=== PATIENT | female | born 1995 | race Caucasian/White ===

== ENCOUNTER → 2017-02-22 19:40 | Observation (INO) ==
--- NOTE | 2017-02-22 17:48 | OB/GYN Progress Note ---
Date of Encounter: 02/22/17 Time of Encounter: 17:44 - Assessment and Plan (1) Vaginal discharge during in second trimester Current Visit: Yes Status: Acute Heart tones WNL SSE - cervix visually closed with large amount of proctor/white discharge with fishy odor Fern - negative Nitrazine - negative Vaginosis panel - negative Urinalysis - contaminated Discharge home with labor precautions. Follow up in office with primary TECHNICAL COMMUNICATION TEACHER as scheduled and PRN. (2) 22 weeks gestation of Current Visit: Yes Status: Acute Subjective - Subjective Principal diagnosis: Vaginal discharge during Interval history: Ms Souza is a at 22 weeks who is a patient of Dr Higgins in [place] that arrives to triage with c/o leaking of fluid that began today around 1300 at work. She states she felt a large amount of pressure when bending over and then a gush. She states she has been having period like cramps since Monday. She discussed these complaints with her primary OB over the phone who suggested she take a warm bath on Monday evening. She states positive movement, but states that it has never been regular movement. She denies vaginal bleeding, headaches, vision changes, and epigastric pain. Antepartum ROS: new complaints, loss of fluid, movement normal Objective - Exam FHR: auscultation normal FHR comments: FHTs 150 with moderate variability - appropriate for gestational age. Auscultation: bilateral: normal Abdomen: Present: normal appearance, soft, gravid. Absent: distention, tenderness Uterus: Present: normal. Absent: firm, tenderness Comments: SSE - cervix visually closed Large amount of proctor/white discharge with fish odor.
[2017-02-22 18:06] LABS: Bilirubin,Urine Negative (Negative); Blood,Urine Negative (Negative); Clarity,Urine Cloudy (Clear); Color,Urine Yellow (Yellow); Glucose,Urine (UA) Normal (Normal); Ketones,Urine Negative (Negative); Leukocyte Esterase,Urine Negative (Negative); Nitrite,Urine Negative (Negative); Protein,Urine Negative (Neg-Trace); Specific Gravity,Urine 1.022 (1.010-1.025); Urobilinogen,Urine Normal (Normal)
[2017-02-22 18:09] LABS: Bacteria,Urine None Seen per hpf (None-Few); Hyaline Casts,Urine None Seen per lpf (None-Few); RBC,Urine 0-3 per hpf (0-3); Squamous Epithelial Cell,Urine Many per lpf (None-Few)
[2017-02-22 19:26] LABS: Trichomonas DNA Not Detected (Not Detect)
[2017-02-22 19:27] LABS: Candida DNA Not Detected (Not Detect); Gardnerella DNA Not Detected (Not Detect)
[2017-02-22 19:37] LABS: Amphetamine Screen,Urine Negative ng/mL (Cutoff=1000); Barbiturate Screen,Urine Negative ng/mL (Cutoff=200); Benzodiazepines Screen,Urine Negative ng/mL (Cutoff=200); Cannabinoid Screen,Urine Negative ng/mL (Cutoff = 50); Cocaine Screen,Urine Negative ng/mL (Cutoff= 300); Opiate Screen,Urine Negative ng/mL (Cutoff=300); Phencyclidine Screen,Urine Negative ng/mL (Cutoff=25)
== END | disposition home or self-care (01) ==
LOC: 1NENULAB
PROVIDERS: ADMIT Obstetrics & Gynecology; ATTEND Obstetrics & Gynecology

== ENCOUNTER → 2017-05-04 10:12 | Observation (INO) ==
[2017-05-04 09:11] LABS: Bilirubin,Urine Negative (Negative); Blood,Urine Negative (Negative); Clarity,Urine Clear (Clear); Color,Urine Yellow (Yellow); Glucose,Urine (UA) Normal (Normal); Ketones,Urine Negative (Negative); Leukocyte Esterase,Urine Trace (Negative); Nitrite,Urine Negative (Negative); Protein,Urine Negative (Neg-Trace); Urobilinogen,Urine Normal (Normal)
[2017-05-04 09:18] LABS: Amphetamine Screen,Urine Negative ng/mL (Cutoff=1000); Barbiturate Screen,Urine Negative ng/mL (Cutoff=200); Benzodiazepines Screen,Urine Negative ng/mL (Cutoff=200); Cannabinoid Screen,Urine Negative ng/mL (Cutoff = 50); Cocaine Screen,Urine Negative ng/mL (Cutoff= 300); Opiate Screen,Urine Negative ng/mL (Cutoff=300); Phencyclidine Screen,Urine Negative ng/mL (Cutoff=25)
[2017-05-04 09:41] LABS: Squamous Epithelial Cell,Urine Many per lpf (None-Few); Transitional Epi Cells,Urine Few per hpf (None-Few)
[2017-05-04 09:42] LABS: Bacteria,Urine Few per hpf (None-Few)
[2017-05-04 09:43] LABS: Renal Epithelial Cells,Urine Few per hpf (None-Few); WBC,Urine 0-3 per hpf (0-3)
--- NOTE | 2017-05-04 10:00 | OB/GYN Progress Note ---
Date of Encounter: 05/04/17 Time of Encounter: 09:53 - Assessment and Plan (1) 32 weeks gestation of Current Visit: Yes Status: Acute FHR wnl and cervix closed. Patient has a f/u appointment in the office tomorrow. (2) Cramping affecting , antepartum Current Visit: Yes Status: Acute Cramping pain has improved since initial pain from 8/10 to 3/10. - UA wnl except for trace bryn, reflex culture. - Cervical os closed - FHR catagory 1. No contractions on monitor. - Patient given reassurance and work note. Discussed with Kathleen Cardoso. Pt safe for discharge home, with labor precautions, when to return to triage or call provider. Pt verbalizes understanding. Subjective - Subjective Principal diagnosis: cramping pain at 32wk +1d Interval history: Patient is a 21 y/o female at 32wk +1d presented to labor and delivery for crampy pain for 4 hrs. Cramping began at 5:30am located in the suprapubic region. Pain this morning was 8/10 but is currently 3/10. Patient took Tylenol which did not help. Patient denies walking long distance yesterday, sexual intercourse, or dehydration. movement normal. Denies vaginal bleeding or bloody discharge. Patient denies fever, chills, weakness, dizziness, changes in vision, GONZALEZ, cough, dysuria, or rashes. Patient currently not taking any medications. No complications. I examined this patient and my medical decision-making was reviewed with the Resident Physician. I agree with the documented findings, disposition and treatment plan as described except to the extent set forth below. JERMOE Perez Antepartum ROS: movement normal, no loss of fluid, no vaginal bleeding Objective - Vital Signs Vital Signs: Vitals within normal limits. Normotensive and afebrile. 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 - Labs Labs: Abnormal lab results Ur Leukocyte Esterase Trace (Negative) H 05/04/17 09:00 Ur Squamous Epith Cells Many per lpf (None-Few) H 05/04/17 09:00
--- NOTE | 2017-05-04 10:10 | Discharge Summary ---
Date of Encounter: 05/04/17 Time of Encounter: 10:10 - Discharge Medications Home Medications: Tylenol 1,000 / PO Q6-12H PRN 01/23/17 [History] Vit/Iron Fumarate/FA [ Tablet] 1 each PO DAILY 02/22/17 [ History] Allergies/Adverse Reactions: 3 Allergy/AdvReac Type Severity Reaction Status Date / Time codeine Allergy Rash Verified 04/14/17 16:57 [From Tylenol-Codeine #3] Amoxicillin AdvReac Rash Verified 04/14/17 16:57 morphine AdvReac Rash Verified 04/14/17 16:57 Data Procedures and tests throughout hospitalization: Laboratory Tests 05/04/17 05/04/17 09:00 09:00 Urine Color Yellow Urine Clarity Clear Urine pH 7.0 Ur Specific [place] 1.020 Urine Protein Negative Urine Glucose (UA) Normal Urine Ketones Negative Urine Blood Negative Urine Nitrite Negative Urine Bilirubin Negative Urine Urobilinogen Normal Ur Leukocyte Esterase Trace H Urine Microscopic WBC 0-3 Ur Squamous Epith Cells Many H Ur Transition Epith Cell Few Ur Renal Epithelial Cell Few Urine Bacteria Few Ur Culture Indicated? NO Urine Opiates Screen Negative Ur Barbiturates Screen Negative Ur Phencyclidine Scrn Negative Ur Amphetamines Screen Negative U Benzodiazepines Scrn Negative Urine Cocaine Screen Negative U Marijuana (THC) Screen Negative Labs on day of discharge: Labs from last 24 hours 05/04/17 05/04/17 09:00 09:00 Urine Color Yellow Urine Clarity Clear Urine pH 7.0 Ur Specific [place] 1.020 Urine Protein Negative Urine Glucose (UA) Normal Urine Ketones Negative Urine Blood Negative Urine Nitrite Negative Urine Bilirubin Negative Urine Urobilinogen Normal Ur Leukocyte Esterase Trace H Urine Microscopic WBC 0-3 Ur Squamous Epith Cells Many H Ur Transition Epith Cell Few Ur Renal Epithelial Cell Few Urine Bacteria Few Ur Culture Indicated? NO Urine Opiates Screen Negative Ur Barbiturates Screen Negative Ur Phencyclidine Scrn Negative Ur Amphetamines Screen Negative U Benzodiazepines Scrn Negative Urine Cocaine Screen Negative U Marijuana (THC) Screen Negative Date of admission: 05/04/17 08:37 Primary care physician: PCP NONE Discharging clinician: Kathleen Cardoso Anticipated date of discharge: 05/04/17 - Patient Status Disposition: Home, Self-Care Condition: Good Functional capacity at discharge: independent ambulation - Discharge Instructions Follow Up With: NONE,PCP [Primary Care Provider] - - Diet and Activity Activity: increase activity as tolerated Diet: regular diet Hospital Course [facility] DIRECT[facility] Time Attestation: Total time spent providing and/or coordinating discharge services: Time Spent: Less than 30 minutes Exam - Constitutional General appearance IM: A&O X 3, pleasant, answers questions appropriately - Other Additional findings: SVE: Closed/posterior - VTE Reasons for not Prescribing Prophylaxis: Treatment not Indicated - Low risk for VTE
== END | disposition home or self-care (01) ==
LOC: 1NENULAB
PROVIDERS: ADMIT Obstetrics & Gynecology; ATTEND Obstetrics & Gynecology

== ENCOUNTER 2017-05-23 20:32 | Observation (INO) ==
--- NOTE | 2017-05-23 20:43 | OB/GYN Progress Note ---
Date of Encounter: 05/23/17 Time of Encounter: 21:12 - Assessment and Plan (1) Compression of right sciatic nerve Current Visit: Yes Status: Acute Plan: - reactive NST - cervix closed - UA collected - given instructions for exercises and chiropractor - Patient safe for discharge home with instructions to return for signs of labor. (2) 34 weeks gestation of Current Visit: Yes Status: Acute (3) NST (non-stress test) reactive Current Visit: Yes Status: Acute FHR baseline = 130, accelerations present Subjective - Subjective Interval history: Patient is a 21 y/o female at 32wk +1d presented to labor and delivery for back pain that radiated down her R leg. Pain began at about 11:00am today. Patient went to work today and would feel pain for about 2-3 minutes then it resolved. Patient did not try taking Tylenol to relieve pain. Denies vaginal bleeding or bloody discharge. Patient denies fever, chills, dysuria, or rashes. No complications. Antepartum ROS: movement normal, contractions, no loss of fluid, no vaginal bleeding Objective - Vital Signs Vital Signs: wnl - Exam FHR: auscultation normal, category 1 FHR comments: Reactive NST Auscultation: bilateral: normal Abdomen: Present: normal appearance Uterus: Present: normal Cervical dilation: closed Comments: I examined this patient and my medical decision-making was reviewed with the Resident Physician. I agree with the documented findings, disposition and treatment plan as described except to the extent set forth below. JEROME Perez
[2017-05-23 20:55] VITALS: BP 128/81
[2017-05-23 21:13] LABS: Bilirubin,Urine Negative (Negative); Blood,Urine Negative (Negative); Color,Urine Yellow (Yellow); Glucose,Urine (UA) Normal (Normal); Ketones,Urine Negative (Negative); Leukocyte Esterase,Urine Trace (Negative); Nitrite,Urine Negative (Negative); PH,Urine 6.5 pH Units (5.0-8.0); Protein,Urine Negative (Neg-Trace); Urobilinogen,Urine Normal (Normal)
[2017-05-23 21:15] LABS: Bacteria,Urine None Seen per hpf (None-Few); Hyaline Casts,Urine None Seen per lpf (None-Few); RBC,Urine 0-3 per hpf (0-3); Squamous Epithelial Cell,Urine Many per lpf (None-Few)
[2017-05-23] MEDS ORDERED: Acetaminophen 325 MG TABLET PO ONE (21:18)
[2017-05-23 21:31] LABS: Clarity,Urine Hazy (Clear)
[2017-05-23 21:47] LABS: Oval Fat Bodies,Urine Present (Not Present)
[2017-05-23 22:55] LABS: Amphetamine Screen,Urine Negative ng/mL (Cutoff=1000); Barbiturate Screen,Urine Negative ng/mL (Cutoff=200); Benzodiazepines Screen,Urine Negative ng/mL (Cutoff=200); Cannabinoid Screen,Urine Negative ng/mL (Cutoff = 50); Cocaine Screen,Urine Negative ng/mL (Cutoff= 300); Opiate Screen,Urine Negative ng/mL (Cutoff=300); Phencyclidine Screen,Urine Negative ng/mL (Cutoff=25)
== END 2017-05-23 21:45 | disposition home or self-care (01) ==
LOC: 1NENULAB
PROVIDERS: ADMIT Student in an Organized Health Care Education/Training Program; ATTEND Student in an Organized Health Care Education/Training Program

== ENCOUNTER 2017-06-21 20:24 | Observation (INO) ==
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
[2017-06-21 21:28] LABS: Amphetamine Screen,Urine Negative ng/mL (Cutoff=1000); Barbiturate Screen,Urine Negative ng/mL (Cutoff=200); Benzodiazepines Screen,Urine Negative ng/mL (Cutoff=200); Cannabinoid Screen,Urine Negative ng/mL (Cutoff = 50); Cocaine Screen,Urine Negative ng/mL (Cutoff= 300); Opiate Screen,Urine Negative ng/mL (Cutoff=300); Phencyclidine Screen,Urine Negative ng/mL (Cutoff=25)
== END 2017-06-21 21:30 | disposition home or self-care (01) ==
LOC: 1NENULAB
PROVIDERS: ADMIT Obstetrics & Gynecology; ATTEND Obstetrics & Gynecology

== ENCOUNTER 2017-07-01 12:44 | Observation (INO) ==
[2017-07-01] MEDS ORDERED: Metoclopramide 10 MG/2 ML VIAL IVP ONE (13:24)
[2017-07-01] MEDS ORDERED: Acetaminophen 325 MG TABLET PO ONE (13:42)
[2017-07-01 13:55] LABS: Basophils % 0.2 %; Eosinophils % 0.6 %; Hematocrit 34.6 % (35.3-44.9); Hemoglobin 11.3 g/dL (11.5-15.4); Immature Granulocytes % 0.9 % (0-4); Lymphocytes # 1.1 K/mcL (0.6-4.6); Lymphocytes % 16.6 %; Mean Corpuscular HGB Conc 32.7 g/dL (31.6-35.5); Mean Corpuscular Hemoglobin 28.6 pg (28.0-33.3); Mean Corpuscular Volume 87.6 fL (83.0-100.0); Monocytes # 0.5 K/mcL (0.0-1.3); Monocytes % 7.8 %; Neutrophils # 4.9 K/mcL (1.6-8.9); Platelet Count 176 K/mcL (140-400); Red Blood Count 3.95 M/mcL (3.82-4.97); Red Cell Distribution Width 14.5 % (11.5-14.5); Segmented Neutrophils % 73.9 %
[2017-07-01 14:02] LABS: Amphetamine Screen,Urine Negative ng/mL (Cutoff=1000); Barbiturate Screen,Urine Negative ng/mL (Cutoff=200); Benzodiazepines Screen,Urine Negative ng/mL (Cutoff=200); Cannabinoid Screen,Urine Negative ng/mL (Cutoff = 50); Cocaine Screen,Urine Negative ng/mL (Cutoff= 300); Opiate Screen,Urine Negative ng/mL (Cutoff=300); Phencyclidine Screen,Urine Negative ng/mL (Cutoff=25)
[2017-07-01 14:13] LABS: Protein/Creatinine Ratio,Urine 0.2 mg/mg (0.00-0.20)
[2017-07-01 14:20] LABS: Alanine Aminotransferase 8 Units/L (7-52); Aspartate Amino Transferase 16 Units/L (13-39); BUN/Creatinine Ratio 12 (6-26); Blood Urea Nitrogen 7 mg/dL (6-20); Lactate Dehydrogenase 150 Units/L (140-271); Uric Acid 4.1 mg/dL (2.3-7.6); eGFR For African Americans > 60 (> 60); eGFR For Non-African Americans > 60 (> 60)
--- NOTE | 2017-07-01 14:44 | OB/GYN Progress Note ---
Date of Encounter: 07/01/17 Time of Encounter: 14:44 - Assessment and Plan (1) 40 weeks gestation of Current Visit: Yes Status: Acute (2) Headache in Current Visit: Yes Status: Acute Blood pressures all within normal limits, all PIH labs and negative Medication with Tylenol and IV Reglan patient's reports improvement of headache Discharged home with went to return to triage, and to notify provider precautions Qualifiers: Trimester: third trimester Qualified Code(s): O26.893 - Other specified related conditions, third trimester; R51 - Headache; R51 - Headache Subjective - Subjective Interval history: 40+3 weeks gestation presents to triage with complaints of headache since yesterday. Patient states she has had a headache since yesterday that has increased in intensity during the day today, patient states she is sensitive to light, but no other visual changes, denies right upper quadrant pain, contractions, vaginal bleeding or leaking of fluid. Reports good movement. Patient states she has a history of migraine and has had 2 other migraines during her . Antepartum ROS: movement normal, no loss of fluid, no vaginal bleeding, no contractions Objective - Vital Signs Vital Signs: Intake and Output 06/30/17 07/01/17 07/01/17 23:59 07:59 15:59 Other: Weight 70.42 kg Patient Weight 07/01/17 23:59 Weight 70.42 kg - Exam FHR: auscultation normal FHR comments: [id number] Abdomen: Present: normal appearance, soft, gravid Uterus: Present: normal Cervical dilation: fingertip/medium/long/high Comments: +1 DTR - Labs Labs: Abnormal lab results Hgb 11.3 g/dL (11.5-15.4) L 07/01/17 13:42 Hct 34.6 % (35.3-44.9) L 07/01/17 13:42
== END 2017-07-01 14:45 | disposition home or self-care (01) ==
LOC: 1NENULAB
PROVIDERS: ADMIT Obstetrics & Gynecology; ATTEND Obstetrics & Gynecology

== ENCOUNTER 2017-07-06 08:00 | Inpatient (IN) ==
[2017-07-06] MEDS ORDERED: Ondansetron 4 MG/2 ML VIAL IVP PRN (08:18)
[2017-07-06] MEDS ORDERED: Naloxone 0.4 MG/ML INJ IVP PRN (08:18)
[2017-07-06] MEDS ORDERED: Famotidine 20 MG/2 ML VIAL IVP PRN (08:18)
[2017-07-06] MEDS ORDERED: *HR* Nalbuphine 20 MG/ML AMPUL IVP PRN (08:18)
[2017-07-06] MEDS ORDERED: Metoclopramide 10 MG/2 ML VIAL IVP PRN (08:18)
[2017-07-06] MEDS ORDERED: miSOPROStol 25 MCG TABLET VG PRN (08:22)
[2017-07-06] MEDS: miSOPROStol 100 MCG TABLET PO SCH ×2 (09:24→13:33)
[2017-07-06 10:32] LABS: Basophils % 0.4 %; Eosinophils # 0.1 K/mcL (0.0-0.6); Eosinophils % 1.2 %; Hematocrit 32.3 % (35.3-44.9); Hemoglobin 10.6 g/dL (11.5-15.4); Immature Granulocytes % 0.9 % (0-4); Lymphocytes # 1.2 K/mcL (0.6-4.6); Lymphocytes % 20.3 %; Mean Corpuscular HGB Conc 32.8 g/dL (31.6-35.5); Mean Corpuscular Hemoglobin 28.6 pg (28.0-33.3); Mean Corpuscular Volume 87.1 fL (83.0-100.0); Mean Platelet Volume 12.1 fL (9.4-12.4); Monocytes # 0.6 K/mcL (0.0-1.3); Monocytes % 10.4 %; Neutrophils # 3.8 K/mcL (1.6-8.9); Platelet Count 186 K/mcL (140-400); Red Blood Count 3.71 M/mcL (3.82-4.97); Red Cell Distribution Width 14.8 % (11.5-14.5); Segmented Neutrophils % 66.8 %
[2017-07-06 10:48] LABS: Amphetamine Screen,Urine Negative ng/mL (Cutoff=1000); Barbiturate Screen,Urine Negative ng/mL (Cutoff=200); Benzodiazepines Screen,Urine Negative ng/mL (Cutoff=200); Cannabinoid Screen,Urine Negative ng/mL (Cutoff = 50); Cocaine Screen,Urine Negative ng/mL (Cutoff= 300); Opiate Screen,Urine Negative ng/mL (Cutoff=300); Phencyclidine Screen,Urine Negative ng/mL (Cutoff=25)
[2017-07-06] MEDS ORDERED: Acetaminophen 325 MG TABLET PO ONE (11:11)
--- NOTE | 2017-07-06 12:36 | OB Labor Progress Note ---
Date of Encounter: 07/06/17 Time of Encounter: 12:35 Labor Progress Note - Subjective Subjective: Pt states increased cramping - Cervix Cervix: 1/50/-3 - Heart Tones Heart Tones: 135/moderate/+accels/-decels - [place]: Occasional - Interventions Interventions: Cervical ovalle placed - Plan Plan: Cervical ovalle Second dose of cytotec when appropriate GBS negative Anticipate
--- NOTE | 2017-07-06 12:41 | OB/GYN History & Physical ---
Date of Encounter: 07/06/17 Time of Encounter: 12:37 Assessment and Plan (1) 41 weeks gestation of Current visit: Yes Status: Acute (2) Post-dates Current visit: Yes Status: Acute Induction of labor with Cytotec, cervical Ramirez AROM when appropriate Anticipate Qualifiers: Post-term type: 40-42 weeks gestation Qualified Code(s): O48.0 - Post-term History of Present Illness HPI: Ms. Souza is a 21 year old female 41+1 weeks gestation presents to labor and delivery for induction of labor for post dates gestation. An complicated care course with Dr. Martinez. Reports good movement, denies contractions, vaginal bleeding or leaking of fluid. Labs: A+, rubella immune, GBS negative, all other serologies negative Past Med Surg Social Fam HX - Past Medical History Medical history: no medical history Psychiatric history: no psych history - Past Surgical History Surgical History: cholecystectomy - Social History Smoking Status: Never smoker Smokeless Tobacco Status: No Alcohol use: none Drug use: none - Family History Mother Adopted: No Family Member Ethnicity: Non- Twin of Family Member: Yes, Fraternal Living Status: Still Living Hx Family Cardiac Disorders: Yes (enlarged heart, leaking valve, HTN) Hx Family Respiratory Disorders: Yes (COPD, asthma) Hx Family Cancer: No Hx Family GI Disorders: Yes (IBS) Hx Family Genitourinary Disorders: Yes (Stage IV kidney nephritis) Hx Family Endocrine Disorder: Yes (hypothyroid) Hx Family Musculoskeletal Disorders: No Hx Family Neuromuscular Disorders: No Hx Family Neurologic Disorders: No Hx Family HEENT Disorders: No Hx Family Autoimmune Disorders: No Hx Family Reproductive Disorders: No Hx Family Psychosocial Disorders: No Hx Family Medical Disorders: No Obstetrical History - Pregnancies : 1 Para: 0 Term: 0 : 0 Ab's: 0 Livin Medications and Allergies Vit/Iron Fumarate/FA [ Tablet] 1 each PO DAILY 02/22/17 [ History] 3 Allergy/AdvReac Type Severity Reaction Status Date / Time codeine Allergy Rash Verified 06/21/17 21:00 [From Tylenol-Codeine #3] Amoxicillin AdvReac Rash Verified 06/21/17 21:00 morphine AdvReac Rash Verified 06/21/17 21:00 Exam - Constitutional Constitutional: well developed, well nourished, no acute distress, average body habitus - Neck Neck exam: full ROM - Lungs Respiratory exam: CTAB - Cardiovascular Cardiovascular exam: RRR - Abdomen Abdomen: Present: bowel sounds normal, gravid, non tender - Extremities Extremities exam: normal capillary refill, normal inspection Deep Tendon Reflex Grade: 2+ Normal - Vagina Vagina: Present: normal moisture - Cervix Dilation: 1 Effacement: 50 Station: -2 - Uterus Uterus exam: Present: normal size, normal contour - Anus/Rectum Anus/Rectum: Present: normal perianal skin Results Result Diagrams: 07/06/17 08:48 Abnormal lab results RBC 3.71 M/mcL (3.82-4.97) L 07/06/17 08:48 Hgb 10.6 g/dL (11.5-15.4) L 07/06/17 08:48 Hct 32.3 % (35.3-44.9) L 07/06/17 08:48 RDW 14.8 % (11.5-14.5) H 07/06/17 08:48 All other labs normal. - VTE Reasons for not Prescribing Prophylaxis: Treatment not Indicated - Low risk for VTE
[2017-07-06] MEDS: Ringers Solution, Lactated 1,000 ML IVC SCH ×2 (16:51→20:59)
[2017-07-06] MEDS ORDERED: Epidural Premix (fent/bupiv) 110 ML EP ONE (18:49)
--- NOTE | 2017-07-06 18:56 | OB Labor Progress Note ---
Date of Encounter: 07/06/17 Time of Encounter: 18:53 Labor Progress Note - Subjective Subjective: Pt states feeling contractions, awaiting epidural - Vital Signs Vital Signs: 112/67 - Cervix Cervix: 3/80/-3 Cervical ovalle out - Heart Tones Heart Tones: 115/moderate/+accels/early decels. - [place]: 4-5 - Plan Plan: Will AROM after epidural Start pitocin per policy Anticipate
[2017-07-06] MEDS ORDERED: Epidural Premix (fent/bupiv) 110 ML EP SCH (20:00)
--- NOTE | 2017-07-06 20:03 | Anesthesia Evaluation PreOp ---
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 History: Denies Any Significant HX Other Medical History: Denies Any Significant HX Anesthesia History: No Prior Anesthetic Complications : Yes Test: Positive Alcohol Use: none Drug use: none Medications and Allergies Vit/Iron Fumarate/FA [ Tablet] 1 each PO DAILY 02/22/17 [ History] 3 Allergy/AdvReac Type Severity Reaction Status Date / Time codeine Allergy Rash Verified 06/21/17 21:00 [From Tylenol-Codeine #3] Amoxicillin AdvReac Rash Verified 06/21/17 21:00 morphine AdvReac Rash Verified 06/21/17 21:00 - Meds/Allergy Pre-op Review Medications Reviewed: Yes Allergies Reviewed: Yes Beta Blockers on Current Med List: No Anesthesia Results - Labs 07/06/17 08:48 Anesthesia Exam - HEENT Pupil (Motor): Pupils equal Mallampati: II Teeth: Missing Oral Opening: Greater than 3 - SCREW MACHINE OPERATOR SINGLE SPINDLE LOC: Oriented SCREW MACHINE OPERATOR SINGLE SPINDLE Motor: Normal RUE, Normal LUE, Normal RLE, Normal LLE, Normal Face SCREW MACHINE OPERATOR SINGLE SPINDLE Sensory: Normal: RUE, LUE, RLE, LLE, Face - Cardiac Rhythm: Regular Murmur: None JVD: No Carotid Bruit: No - Pulmonary Breath Sounds: bilateral Clear Respiratory Effort: Symmetrical Anesthesia Assess/Plan ASA Score: 1 Modified [place] Scale for Level of Consciousness: Cooperative, oriented, and tranquil Anesthetic Plan: Regional Autologous Blood: No Monitoring Plan: Standard Monitors
--- NOTE | 2017-07-06 20:05 | Anesthesia Procedures ---
Date of Encounter: 07/06/17 Time of Encounter: 19:15 Procedures: Anesthesia - Epidural/Spinal Patient ID/Chart reviewed: Yes Patient examined: Yes OB Eval: Gestational age: 41 OB Eval: : 1 OB Eval: Hx Para: 0 OB Eval: Dilated at (cm): 3 OB Eval: Contractions: Non-stressed pattern Consent Obtained: Yes Supplemental Oxygen: None/Room Air Site Prep: Aseptic Technique, Sterile prep and drape, Povidone-Iodine 1% Patient position: upright Amount of Local Anesthetic used: 3 Touhy Needle Gauge: 18 Touhy Needle Depth (cm): 5 Catheter Depth at Skin (cm): 8 Test Dose (1.5% Lido + Epi): Volume given (mls): 3 Test Dose Result: Negative Loading Dose: 0.25% Marcaine (mls): 10 Loading Dose Administered: Thru Catheter Infusion Rate (mls/hr): [address]: Tegaderm, Tape Interspace Used: L4-L5 Loss of Resistance (CLARA): Yes Blood: No CSF: No Paresthesia: No Procedure: tolerated well no anesthesia complications
[2017-07-06] MEDS: Oxytocin 20 units/ LR 1000 mL 20 UNIT/1,000 ML BAG IVC SCH (20:58)
--- NOTE | 2017-07-06 21:07 | OB Labor Progress Note ---
Date of Encounter: 07/06/17 Time of Encounter: 21:04 Labor Progress Note - Subjective Subjective: Pt resting comfortable with epidural - Cervix Cervix: 3-4/80/-3 - Heart Tones Heart Tones: 125/moderate/+accels/-decels - [place]: 3-6 - Interventions Interventions: AROM for clear fluid IUPC placed without incident - Plan Plan: Start pitocin per policy Frequent repositioning Anticipate
--- NOTE | 2017-07-07 00:14 | OB Labor Progress Note ---
Date of Encounter: 07/07/17 Time of Encounter: 00:11 Labor Progress Note - Subjective Subjective: Pt resting comfortable with epidural - Vital Signs Vital Signs: 126/79 - Cervix Cervix: 4/80/-3 per RN exam - Heart Tones Heart Tones: 135/moderate/+accels/occasional late and variable decels resolved with repositioning - [place]: 2-4 - Interventions Interventions: Called to room to discuss patient care with family. Discussed tracing and plan of care okay to continue with induction. - Plan Plan: Continue pitocin per policy frequent repositioning with peanut ball Anticipate
[2017-07-07] MEDS ORDERED: Epidural Premix (fent/bupiv) 110 ML EP ONE (02:59)
--- NOTE | 2017-07-07 05:15 | OB Labor Progress Note ---
Date of Encounter: 07/07/17 Time of Encounter: 05:13 Labor Progress Note - Subjective Subjective: Patient comfortable with epidural - Cervix Cervix: Remains 3-4 cm/80/-3 - Heart Tones Heart Tones: 140/moderate/late and variable decels - Boley Boley: IUPC 4-5 - Plan Plan: Cervical exam essentially unchanged since Ramirez bulb has come out. She has been having intermittent late decelerations cells over the last few hours, Pitocin has been off, unable to restart. Since cervix remains unchanged will call Dr. Solitario for consult
[2017-07-07] MEDS ORDERED: Clindamycin 900 MG/50 ML 900 MG/50 ML IV.SOLN IVPB ONE (05:25)
[2017-07-07] MEDS ORDERED: Lidocaine/EPI 1:200k 2% PF 20 ML VIAL ONE (05:43)
[2017-07-07] MEDS ORDERED: Dexamethasone 4 MG/ML VIAL ONE (05:57)
[2017-07-07] MEDS ORDERED: Ketorolac 30 MG/ML VIAL ONE (05:57)
[2017-07-07] MEDS ORDERED: Ondansetron 4 MG/2 ML VIAL ONE (05:57)
[2017-07-07] MEDS ORDERED: *HR* Oxytocin 10 UNIT/ML VIAL IM ONE (05:57)
[2017-07-07] MEDS ORDERED: Ketamine *HR* 500 MG/10 ML MDV ONE (06:01)
[2017-07-07] MEDS ORDERED: Lidocaine -MPF 2% 5 ML VIAL ONE ×3 (06:28→06:30)
[2017-07-07] MEDS ORDERED: *HR* Ropivacaine/PF 0.5% 20 ML VIAL ONE (06:28)
--- NOTE | 2017-07-07 07:16 | Anesthesia Procedures ---
Date of Encounter: 07/07/17 Time of Encounter: 06:00 Procedures: Anesthesia - Nerve Block Procedure Date: 07/07/17 Time: 06:50 Pre-op Diagnosis: Cephalo-pelvic disproportion Surgical Procedure: Checklist: Correct Patient Identifier Blood Thinner: No Monitor Applied: EKG, BP, Pulse Oximetry Supplemental Oxygen via Nasal Cannula (L/min): 2 Block Type: Other (TAP Block) Catheter placed: No Depth at skin (cm): 4 Sterile Technique: Yes Ultrasound used: Yes Anatomy identified: Yes Visual spread of Local: Yes Neuro Stimulation: No Blood on Needle Aspiration: No Smooth Injection of Local: Yes Pain with Injection of Local: No Prep: Chlorhexadine Needle: 21 x 100 mm Stimuplex Local: Ropivacaine (0.25), Other (Lidocaine 1%) Volume (cc): 40 Number of Attempts: 1 Complications: None/effective block
--- NOTE | 2017-07-07 07:18 | OB/GYN Procedure Note ---
Section - Date of procedure: 07/07/17 Preop diagnosis: arrest of descent, arrest of dilation Post-op diagnosis: other (Abdominal wall nevus) Procedure: primary low transverse, other (Resection of abdominal wall nevus) Surgeon: Antonio Solitario Estimated blood loss (cc): 500 Was there an practice assistant present: No Anesthesiologist: Kyle Lora Anesthesia Type: Epidural (with TAP block) section complications: none Disposition: PACU - (s) A Infant Delivery Date: 07/07/17 Delivery Time: 06:08 Presentation: vertex Position: OA Gender: Female Viability: Viable Pounds: 7 Ounces: 7 at 1 minute: 8 at 5 minutes: 9 Cord: nuchal cord, nuchal reduced - Narrative Narrative: Patient was taken to the operating room. After satisfactory anesthesia was achieved patient placed in supine position and prepped and draped in usual manner. After appropriate timeout, the abdomen was entered through standard [place] incision. The Gladys retractor was placed. The peritoneum overlying the lower uterine segment was incised in the U-shaped fashion. Uterine cavity was then extended laterally fluid was clear with fundal pressure the head was delivered. Nuchal cord was relieved. The remainder of the was delivered and the umbilical cord doubly clamped and cut was handed to nursery staff further evaluation. Placenta was removed and sent to pathology for analysis. Uterus was closed with 0 Monocryl in a single layer. After assurance hemostasis the abdomen was closed in an fashion using 0 Vicryl in the fascia and 3-0 Monocryl on the skin sterile dressing was applied. Dr. Lora then performed to TAP block. Patient did well and was taken to recovery room in satisfactory condition. Counts were correct.
--- NOTE | 2017-07-07 07:19 | Anesthesia Progress Note ---
Date of Encounter: 07/07/17 Time of Encounter: 06:00 Anesthesia Note - Note Note: 07/07/17 07:16 Patient to OR for . Has anaphylactic reaction to morphine. Discussed TAP block with mom and father of baby for post op pain control. Agrees to proceed.
[2017-07-07] MEDS: Oxytocin 20 units/ LR 1000 mL 20 UNIT/1,000 ML BAG IVC SCH (08:15)
[2017-07-07] MEDS ORDERED: NON-FORMULARY MEDICATION 1 EACH EACH (Prenatal Vit/Iron Fumarate/Fa [Prenatal Tablet] 1 EA PO SCH (10:12)
[2017-07-07] MEDS ORDERED: Oxytocin 20 units/ LR 1000 mL 20 UNIT/1,000 ML BAG IVC SCH (10:12)
[2017-07-07] MEDS ORDERED: Sennosides 8.6 MG TABLET PO PRN (10:12)
[2017-07-07] MEDS ORDERED: Metoclopramide 10 MG/2 ML VIAL IVP PRN (10:12)
[2017-07-07] MEDS ORDERED: Simethicone 80 MG TAB.CHEW PO PRN (10:12)
[2017-07-07] MEDS ORDERED: Ondansetron 4 MG/2 ML VIAL IVP PRN (10:12)
[2017-07-07] MEDS: *HR* OxyCODONE/APAP 5/325 TABLET PO PRN ×3 (10:37→18:55)
[2017-07-07] MEDS: Prenatal Vit/FA 1 EACH TABLET PO SCH (11:12)
[2017-07-07] MEDS: Ibuprofen 600 MG TABLET PO PRN ×2 (11:37→18:17)
[2017-07-07] MEDS: Acetaminophen 325 MG TABLET PO PRN (15:53)
[2017-07-07] MEDS ORDERED: Acetaminophen IV 1,000 MG/100 ML INFUS..BTL IVPB ONE (20:24)
[2017-07-07] MEDS: *HR* OxyCODONE Immed Rel 5 MG TABLET PO PRN (21:15)
[2017-07-08] MEDS: *HR* OxyCODONE Immed Rel 5 MG TABLET PO PRN ×3 (01:16→23:15)
[2017-07-08 04:58] LABS: Basophils % 0.1 %; Eosinophils % 0.2 %; Immature Granulocytes % 0.4 % (0-4); Lymphocytes # 1.3 K/mcL (0.6-4.6); Mean Corpuscular HGB Conc 32.8 g/dL (31.6-35.5); Mean Corpuscular Hemoglobin 28.6 pg (28.0-33.3); Mean Corpuscular Volume 87.1 fL (83.0-100.0); Mean Platelet Volume 11.8 fL (9.4-12.4); Monocytes # 0.7 K/mcL (0.0-1.3); Monocytes % 5.1 %; Neutrophils # 12.1 K/mcL (1.6-8.9); Platelet Count 126 K/mcL (140-400); Red Blood Count 2.87 M/mcL (3.82-4.97); Red Cell Distribution Width 15.4 % (11.5-14.5); Segmented Neutrophils % 85.2 %
[2017-07-08 05:03] LABS: Hemoglobin 8.2 g/dL (11.5-15.4)
[2017-07-08] MEDS: Prenatal Vit/FA 1 EACH TABLET PO SCH (07:52)
[2017-07-08] MEDS: Ibuprofen 600 MG TABLET PO PRN ×2 (08:25→19:53)
[2017-07-08] MEDS ORDERED: Ketorolac 30 MG/ML VIAL IVP PRN (08:57)
--- NOTE | 2017-07-08 09:15 | OB/GYN Progress Note ---
Date of Encounter: 07/08/17 Time of Encounter: 09:16 - Assessment and Plan (1) Status post primary low transverse section Current Visit: Yes Status: Acute Continue routine post op / post care Meeting appropriate milestones Encouraged walking in [place] Anticipate discharge home tomorrow with baby Subjective - Subjective Principal diagnosis: Primary C/S for FTP Interval history: Doing well S/P Primary C/S day 1 Pain is controlled when on medication; c/o increased pain when meds wear off Tolerating regular diet Voiding without difficulty Bowel sounds present; passing flatus Bottle feeding Anticipate discharge home tomorrow. Patient reports: appetite normal, voiding normally, pain well controlled, ambulating normally [place]: doing well, bottle feeding Objective - Vital Signs Latest vital signs: Vital Signs Temp Pulse Resp BP Pulse Ox 07/08/17 07:30 97.6 F 78 16 100/64 07/08/17 04:45 97.8 F 73 16 105/70 96 07/07/17 23:45 97.6 F 75 16 134/82 97 07/07/17 20:00 97.7 F 74 16 114/77 96 07/07/17 17:17 16 07/07/17 15:13 98.3 F 75 16 129/77 07/07/17 12:40 98.2 F 79 16 124/83 96 07/07/17 11:43 98.5 F 73 16 137/88 07/07/17 11:40 16 07/07/17 10:41 98.7 F 73 16 146/92 07/07/17 10:40 16 07/07/17 10:10 98.3 F 72 16 148/93 96 07/07/17 09:40 98.1 F 78 16 135/93 96 Intake and Output 07/07/17 07/08/17 07/08/17 23:59 07:59 15:59 Intake Total 1280 / 1280 1000 / 1000 Output Total 250 / 250 1000 / 1000 Balance 1030 / 1030 0 / 0 Intake: IV Fluids 100 / 100 1000 / 1000 Pitocin 20 unit In 1,000 ml @ 1000 / 1000 125 mls/hr IVC .Q8H [facility] Rx#: [id number] Ofirmev 1,000 mg/100 ml 1,000 100 / 100 mg In 100 ml @ 400 mls/hr IVPB ONCE ONE Rx#:[id number] Oral 1180 / 1180 0 / 0 Output: Urine 250 / 250 Catheter 1000 / 1000 Other: Meal Dinner Percent of Meal Consumed 90% Weight 68.22 kg Patient Weight 07/08/17 23:59 Weight 68.22 kg - Exam Lungs: bilateral: normal Chest: Normal S1, Normal S2 Extremities: Present: normal Abdomen: Present: normal appearance, soft, tenderness (with palpation). Absent : gravid Incision: Present: normal, dry, intact Uterus: Present: normal, firm Fundal Height: 0 (@ umbilicus) - Labs Labs: Laboratory Results - last 24 hr 07/08/17 04:41 WBC 14.2 H D RBC 2.87 L Hgb 8.2 L D Hct 25.0 L MCV 87.1 MCH 28.6 MCHC 32.8 RDW 15.4 H Plt Count 126 L MPV 11.8 Immature Gran % 0.4 Seg Neutrophils % 85.2 Lymphocytes % 9.0 Monocytes % 5.1 Eosinophils % 0.2 Basophils % 0.1 Neutrophils # 12.1 H Lymphocytes # 1.3 Monocytes # 0.7 Eosinophils # 0.0 Basophils # 0.0
[2017-07-08] MEDS: Acetaminophen 325 MG TABLET PO PRN ×2 (11:51→22:00)
[2017-07-08] MEDS: *HR* OxyCODONE/APAP 5/325 TABLET PO PRN (18:22)
[2017-07-09] MEDS: Ibuprofen 600 MG TABLET PO PRN ×2 (03:06→08:46)
[2017-07-09] MEDS: *HR* OxyCODONE/APAP 5/325 TABLET PO PRN ×2 (05:29→10:36)
[2017-07-09 07:46] VITALS: BP 108/66
[2017-07-09] MEDS: Prenatal Vit/FA 1 EACH TABLET PO SCH (08:46)
--- NOTE | 2017-07-09 08:49 | Discharge Summary ---
Date of Encounter: 07/09/17 Time of Encounter: 08:46 - Discharge Diagnosis (1) anemia Priority: Secondary Status: Acute Comments: Continue Ferrous sulfate Discharge home with prescription of Iron daily (2) Status post primary low transverse section Priority: Primary Status: Acute Comments: Continue routine /post-op care Meeting day 2 milestones Anticipate discharge home today - Discharge Medications Prescriptions: OxyCODONE/APAP 5/325 [Percocet 5/325 MG] 1 each PO Q4HR PRN 5 Days #30 tablet PRN Reason: Moderate pain 4-6 Ibuprofen [Motrin] 600 mg PO Q6HR PRN #60 tablet PRN Reason: Cramping Docusate [Colace] 100 mg PO BID #60 capsule Ferrous Sulfate 325 mg PO DAILY #30 tablet Home Medications: Vit/Iron Fumarate/FA [ Tablet] 1 each PO DAILY 02/22/17 [ History] Docusate [Colace] 100 mg PO BID #60 capsule 07/09/17 [Rx] Ferrous Sulfate 325 mg PO DAILY #30 tablet 07/09/17 [Rx] Ibuprofen [Motrin] 600 mg PO Q6HR PRN #60 tablet 07/09/17 [Rx] OxyCODONE/APAP 5/325 [Percocet 5/325 MG] 1 each PO Q4HR PRN 5 Days #30 tablet [Rx] Simethicone [Gas-X] 80 mg PO TID PRN tab.chew 07/09/17 [Rx] Allergies/Adverse Reactions: 3 Allergy/AdvReac Type Severity Reaction Status Date / Time codeine Allergy Rash Verified 06/21/17 21:00 [From Tylenol-Codeine #3] Amoxicillin AdvReac Rash Verified 06/21/17 21:00 morphine AdvReac Rash Verified 06/21/17 21:00 Data Procedures and tests throughout hospitalization: Laboratory Tests 07/06/17 07/06/17 07/08/17 08:48 08:48 04:41 WBC 5.7 14.2 H D RBC 3.71 L 2.87 L Hgb 10.6 L 8.2 L D Hct 32.3 L 25.0 L MCV 87.1 87.1 MCH 28.6 28.6 MCHC 32.8 32.8 RDW 14.8 H 15.4 H Plt Count 186 126 L MPV 12.1 11.8 Immature Gran % 0.9 0.4 Seg Neutrophils % 66.8 85.2 Lymphocytes % 20.3 9.0 Monocytes % 10.4 5.1 Eosinophils % 1.2 0.2 Basophils % 0.4 0.1 Neutrophils # 3.8 12.1 H Lymphocytes # 1.2 1.3 Monocytes # 0.6 0.7 Eosinophils # 0.1 0.0 Basophils # 0.0 0.0 Urine Opiates Screen Negative Ur Barbiturates Screen Negative Ur Phencyclidine Scrn Negative Ur Amphetamines Screen Negative U Benzodiazepines Scrn Negative Urine Cocaine Screen Negative U Marijuana (THC) Screen Negative Date of admission: 07/06/17 08:11 Primary care physician: PCP NONE Discharging clinician: Kathleen Cardoso Anticipated date of discharge: 07/09/17 - Patient Status Disposition: Home, Self-Care Condition: Good Overall status at discharge: patient is progressing back to baseline - Discharge Instructions Follow Up With: NONE,PCP [Primary Care Provider] - Antonio Solitario MD [Partnered Physician] - - Diet and Activity Activity: increase activity as tolerated Diet: regular diet Hospital Course Procedures: Status post section Reason for admission: active labor Delivery: section Episiotomy: none Laceration: none Other procedures: none complications: none Discharge diagnosis: IUP at term delivered [place] baby: female Hospital course: Section - Date of procedure: 07/07/17 Preop diagnosis: arrest of descent, arrest of dilation Post-op diagnosis: other (Abdominal wall nevus) Procedure: primary low transverse, other (Resection of abdominal wall nevus) Surgeon: Antonio Solitario Estimated blood loss (cc): 500 Was there an assistant designer present: Maria Dolores Anesthesiologist: Kyle Lora Anesthesia Type: Epidural (with TAP block) section complications: none Disposition: PACU - (s) Infant A Delivery Date: 07/07/17 Delivery Time: 06:08 Presentation: vertex Position: OA Gender: Female Viability: Viable Pounds: 7 Ounces: 7 at 1 minute: 8 at 5 minutes: 9 Cord: nuchal cord, nuchal reduced - Narrative Narrative: Patient was taken to the operating room. After satisfactory anesthesia was achieved patient placed in supine position and prepped and draped in usual manner. After appropriate timeout, the abdomen was entered through standard Maylard incision. The Gladys retractor was placed. The peritoneum overlying the lower uterine segment was incised in the U-shaped fashion. Uterine cavity was then extended laterally fluid was clear with fundal pressure the head was delivered. Nuchal cord was relieved. The remainder of the was delivered and the umbilical cord doubly clamped and cut infant was handed to nursery staff further evaluation. Placenta was removed and sent to pathology for analysis. Uterus was closed with 0 Monocryl in a single layer. After assurance hemostasis the abdomen was closed in an fashion using 0 Vicryl in the fascia and 3-0 Monocryl on the skin sterile dressing was applied. Dr. Lora then performed to TAP block. Patient did well and was taken to recovery room in satisfactory condition. Counts were correct. Time Attestation: Total time spent providing and/or coordinating discharge services: Time Spent: Less than 30 minutes - VTE Reasons for not Prescribing Prophylaxis: Treatment not Indicated - Low risk for VTE Documentation of Mechanical Device: Intermittent pneumatic compression device Exam - Constitutional Vitals: Temp Pulse Resp BP Pulse Ox 98.4 F 79 16 108/66 98 07/09/17 07:46 07/09/17 07:46 07/09/17 07:46 07/09/17 07:46 07/08/17 19:30 General appearance IM: cooperative, A&O X 3, pleasant, no acute distress - Respiratory Respiratory exam: Present: CTAB - Cardiovascular Cardiovascular exam IM: Present: RRR, +S1, +S2 - GI/Abdominal GI/Abdominal exam IM: normal bowel sounds, soft Incision: dressed (KEVIN) - Rectal Rectal exam: deferred - External exam: normal external exam Uterine Tone: Firm Uterus Position: 2 Fingers Below Umbilicus - Extremities Exam Extremities exam IM: Present: full ROM, normal capillary refill, normal inspection - Neurological Exam Neurological exam: alert, oriented X3, reflexes normal
[2017-07-09] MEDS ORDERED: FLUBLOK QUAD 17/18 (18YR UP)/PF 0.5 ML SYRINGE IM ONE (10:02)
== END 2017-07-09 12:20 | disposition home or self-care (01) | DRG 540 ==
LOC: 1NENULAB 08:11 → 1NENUOBS 07-07 09:46
PROVIDERS: ADMIT Advanced Practice Midwife; ATTEND Advanced Practice Midwife